=== PATIENT | male | born 1945 | race Caucasian/White ===

== ENCOUNTER 2017-03-18 19:24 | Emergency (ER) | payer MEDICARE, OTHER, SELFPAY ==
[~2017-03-18] VITALS: Ht 180.3 cm; Wt 77.2 kg
[2017-03-18] MEDS ORDERED: OXYcodone/APAP 10/325MG TABLET ONE (20:09)
[2017-03-18] MEDS ORDERED: OXYcodone/APAP 5/325MG TABLET ONE (20:11)
[2017-03-18] MEDS ORDERED: OXYcodone/APAP 5/325MG TABLET PO ONE (20:30)
[2017-03-18 22:04] VITALS: BP 155/95
== END 2017-03-18 22:06 | disposition home or self-care (01) ==
LOC: ED 21:45
DX: S42.294A Other nondisplaced fracture of upper end of right humerus, initial encounter for closed fracture (principal); I10 Essential (primary) hypertension; W11.XXXA Fall on and from ladder, initial encounter; Y93.89 Activity, other specified; Y92.009 Unspecified place in unspecified non-institutional (private) residence as the place of occurrence of the external cause; Y99.9 Unspecified external cause status
CPT/HCPCS: 29105; 70450; 99284